=== PATIENT | male | born 1970 | race Caucasian/White ===

== ENCOUNTER 2020-12-06 09:20 | Emergency (ER) | payer SELFPAY ==
[2020-12-06 09:42] VITALS: BP 161/91; PULSE 85; RESP 20; TEMP 36.8; O2SAT 94
--- NOTE | 2020-12-06 09:54 | W.ED.GENAD ---
Discharge Plan Disposition Patient Disposition: HOME Condition: Improving Discharge Details Chief Complaint: Orthopedic Clinical Impression: Right tennis elbow Primary Care Provider: None,None ED Provider: Ernie Hess Home Meds and New Rx's Prescriptions: No Action No Known Home Meds RF: 0 Discharge Instructions Instructions: Tennis Elbow (ED) Additional Instructions: Wear sling and light duty at work until Thursday Ice to area to reduce discomfort. Tylenol and/or ibuprofen as needed for pain. Please purchase a tennis elbow compression wrap available at the local pharmacy and wear at work to help minimize recurrence of discomfort. 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 Associated with increased use of the arm for work. Right lateral epicondylar tenderness. This is consistent with tennis elbow. We will give him a pulse dose of Decadron, placed in sling, off work for 2 days with light duty, and he is to wear a compression device available [id number]. Understands homecare and return precautions. He is stable for discharge to home HPI General Mode of arrival: ambulatory. Date/Time Provider Initiated Documentation: 12/06/20 09:28. Limitations to Documentation: no limitations. Information obtained by: patient. History of Present Illness 50 year old M presents to the emergency department with the chief complaint of Right elbow pain, described as moderate, Quality is described as dull and constant, and is localized to the right and upper extremity. Patient reports no radiation. Patient started experiencing this day(s) and it has been constant. No relieving factors improve symptom(s), No exacerbating factors reported . Patient notes denies fever/chills and rash. Patient did receive the following treatments prior to arrival, none Related Data Home Medications Medication Instructions Recorded Confirmed Unknown [No Known Home Meds] 12/06/20 12/06/20 Allergies Allergy/AdvReac Type Severity Reaction Status Date / Time No Known Allergies Allergy Unverified 12/06/20 09:44 General Stated Complaint: Orthopedic AMY: 4 Review of Systems Narrative: No chest pain or shortness of breath. No other complaints. No rash, no fall or injury. 6 systems reviewed and otherwise negative [facility] Social History Smoking/Tobacco Use Status: Current every day Smoking risk assessment performed?: Yes Drug use: Daily Substance use type: marijuana Do you feel safe at home: Yes Do you feel safe in your relationship?: Yes Exam Narrative Exam Narrative: GEN: awake, alert, oriented 3. Pleasant, well groomed, interactive. HEAD: Normocephalic, atraumatic Normal motor and sensation throughout. EXT: Full ROM, no edema, no rash. Right lateral elbow tenderness, pain with resisted supination and flexion. Neuro: Grossly normal neurologic exam, conversant, interactive. Psych: Speech fluent, thoughts congruent, affect normal Course Vital Signs Vital signs: Vital Signs Temperature 36.8 C 12/06/20 09:42 Pulse 85 12/06/20 09:42 Respiratory Rate 20 12/06/20 09:42 Blood Pressure 161/91 H 12/06/20 09:42 Pulse Oximetry 94 12/06/20 09:42 Temperature 36.8 C 12/06/20 09:42 Temperature Source Tympanic 12/06/20 09:42 Pulse 85 12/06/20 09:42 Respiratory Rate 20 12/06/20 09:42 Respiratory Effort Non-Labored 12/06/20 09:45 Blood Pressure 161/91 H 12/06/20 09:42 Blood Pressure Position Sitting 12/06/20 09:42 Pulse Oximetry 94 12/06/20 09:42 Oxygen Delivery Method Room Air 12/06/20 09:42 Oxygen Flow Rate 0 12/06/20 09:42 Pain Level 8 12/06/20 09:42
[2020-12-06] MEDS: Dexamethasone 4 MG TAB 10 MG PO (10:05)
== END 2020-12-06 10:06 | disposition home or self-care (01) ==
PROVIDERS: Emergency Provider Emergency Medicine
DX: M77.11 Lateral epicondylitis, right elbow (principal)
CPT/HCPCS: 99284; J8540

== ENCOUNTER 2022-04-17 16:34 | Outpatient (REF) | payer MEDICAID, SELFPAY ==
[2022-04-17 18:17] LABS: Abs Immature Grans 0.04 10^3/uL (0.0-0.06); Absolute Basophil Count 0.09 10^3/uL (0.0-0.2); Absolute Eosinophil Count 0.26 10^3/uL (0.0-0.7); Absolute Lymphocyte Count 3.14 10^3/uL (1.2-3.4); Absolute Monocyte Count 0.66 10^3/uL (0.1-0.8); Basophils % 0.9; Eosinophils % 2.6; HCT 46.7 % (40.0-50.0); HGB 15.2 g/dL (13.5-17.5); Immature Grans % 0.4; Lymphocytes % 31.4; MCH 28.5 pg (27.0-33.0); MCHC 32.5 % (32.0-36.0); MCV 88 fL (80-95); MPV 9.9 fL (8.0-11.0); Monocytes % 6.6; Neutrophils % 58.1; Platelet Count 304 10^3/uL (130-400); RBC 5.34 10^6/uL (4.36-5.78); RDW 12.4 % (11.8-14.1); WBC 9.99 10^3/uL (4.4-10.8)
[2022-04-17 19:03] LABS: ALT 37 U/L (16-63); AST 21 U/L (15-37); Albumin 3.7 g/dL (3.4-5.0); Alkaline Phosphatase 95 U/L (46-116); Anion Gap 8.8 mmol/L (3-11); BUN 20 mg/dL (7-18); Bilirubin, Total 0.2 mg/dL (0.2-1.0); CO2 28.2 mmol/L (21.0-32.0); CREATININE 1.2 mg/dL (0.70-1.30); Calcium 9.2 mg/dL (8.5-10.1); Calculated LDL 153 mg/dL (<100); Chloride 106 mmol/L (98-107); Cholesterol 250 mg/dL (<200); Estimated GFR 73.67 (mL/min/1.73m2); Glucose 113 mg/dL (74-106); HDL Cholesterol 45 mg/dL (40-60); Potassium 3.9 mmol/L (3.5-5.1); Sodium 143 mmol/L (136-145); Total Protein 7.4 g/dL (6.4-8.2); Triglyceride 264 mg/dL (<150); Vitamin B12 505 pg/mL (193-986)
== END 2022-04-17 16:35 | disposition home or self-care (01) ==
LOC: NCHCN 16:34
PROVIDERS: Visit Provider Nurse Practitioner Family
DX: R45.4 Irritability and anger (principal); R06.09 Other forms of dyspnea; R06.83 Snoring; F39 Unspecified mood [affective] disorder; F17.200 Nicotine dependence, unspecified, uncomplicated; F10.20 Alcohol dependence, uncomplicated
CPT/HCPCS: 80053; 80061; 82607; 84443; 85025

== ENCOUNTER → 2022-05-01 14:12 | Outpatient (CLI) | payer MEDICAID, SELFPAY ==
--- NOTE | 2022-05-01 | DI.RAD_ITS ---
Exam(s) XR CHEST 2V PA LATERAL EXAM: XR CHEST 2V PA LATERAL CLINICAL HISTORY: EXERTIONAL SOB, R06.09, TOBACCO USE, F17.200, [place], 50+ PACK YR SMOKER. TECHNIQUE: 2D digital imaging was performed. COMPARISON: CR CHEST 2 VIEWS PA,LAT from 02/09/2017 FINDINGS: 2 views: Heart size is normal. The mediastinum is not widened. Lungs are clear. No infiltrates nor pleural effusions. IMPRESSION: No acute pulmonary findings. DATA REPOSITORY: RADIATION DOSE DELIVERED:
== END ==
PROVIDERS: Visit Provider Nurse Practitioner Family
DX: R06.09 Other forms of dyspnea (principal)
CPT/HCPCS: 71046